=== PATIENT | male | born 1940 | race Caucasian/White ===

== ENCOUNTER 2017-11-30 09:24 | Emergency (ER) | payer OTHER ==
[~2017-11-30] VITALS: Ht 177.8 cm; Wt 105.2 kg
[~2017-11-30 09:24] MED LIST: ALLO100T PO; ASPI325T4 PO; ATOR20TA50 PO; CHOL100039 PO; COLCPOW2 PO; GABA100C9 PO; GEMF600T7 PO; GLIP-116 PO; LISI-275 PO; METF-929 PO; METO25TA5 PO
[2017-11-30] MEDS ORDERED: ONDANSETRON HCL 4 MG/2 ML VIAL ONE (09:54)
[2017-11-30 09:57] LABS: Basophils # (auto) 0.1 uL; Basophils % (auto) 0.8 % (0.0-2.0); Eosinophils # (auto) 0.2 uL; Eosinophils % (auto) 1.7 % (0.0-7.0); Hematocrit 39.2 % (41.0-53.0); Hemoglobin 12.9 g/dL (13.5-17.5); Lymphocytes # (auto) 2.8 uL; Mean Corpuscular Hemoglobin 30.4 pg (28.0-32.0); Mean Corpuscular Hgb Conc. 32.9 g/dL (32.0-36.0); Mean Corpuscular Volume 92.6 fL (80.0-100.0); Monocytes # (auto) 0.8 uL; Monocytes % (auto) 7.4 % (0.0-12.0); Neutrophils % (auto) 64.1 % (37.0-80.0); Nucleated Red Blood Cells % 0.1 %; Platelet Count (auto) 200 10^3/uL (140-450); Red Blood Cells 4.23 10^6/uL (4.5-5.90); Red Cell Distribution Width 14.5 % (11.8-14.3); White Blood Cell 10.9 10^3/uL (4.4-10.8)
[2017-11-30] MEDS ORDERED: MORPHINE SULFATE 4 MG/ML SYR/VIAL IV ONE (10:00)
[2017-11-30] MEDS ORDERED: PROMETHAZINE HCL 25 MG/ML 1ML IV ONE (10:00)
[2017-11-30 10:15] LABS: Albumin 2.8 g/dL (3.4-5.0); BUN/Creatinine Ratio 28.3; Calcium 8.2 mg/dL (8.5-10.1); Potassium 4.5 mmol/L (3.5-5.1)
[2017-11-30 10:20] LABS: Bilirubin, Total 0.3 mg/dL (0.2-1.0); Total Protein 6.5 g/dL (6.4-8.2)
[2017-11-30] MEDS ORDERED: LABETALOL HCL 5 MG/ML ML 20ML VIAL IV ONE (11:00)
[2017-11-30] MEDS ORDERED: ASPirin 81 mg TAB PO ONE (13:00)
[2017-11-30] MEDS ORDERED: IBUPROFEN 600 MG TAB PO ONE (14:15)
[2017-11-30] MEDS ORDERED: HEPARIN SODIUM (PORCINE) 5000 UNITS/ML 1ML VIAL IV ONE (16:00)
[2017-11-30 19:40] VITALS: BP 91/45
== END 2017-11-30 11:48 | disposition short-term general hospital (02) ==
LOC: EDBD → ER 09:24 → EDBD 09:24 → EDUNIT# 09:24 → ER 11:48
DX: I24.9 Acute ischemic heart disease, unspecified (principal); I21.4 Non-ST elevation (NSTEMI) myocardial infarction; E11.9 Type 2 diabetes mellitus without complications; I10 Essential (primary) hypertension; J44.9 Chronic obstructive pulmonary disease, unspecified; Z98.61 Coronary angioplasty status; Z79.82 Long term (current) use of aspirin; Z79.84 Long term (current) use of oral hypoglycemic drugs
CPT/HCPCS: 36415; 71045; 80053; 84484; 85025; 93005; 96374; 96375; 99285; J1644; J2270; J2405

== ENCOUNTER 2018-02-09 20:55 | Emergency (ER) | payer OTHER ==
[2018-02-09] MEDS ORDERED: EPINEPHrine HCL 1 MG/10 ML SYRG IV ONE (20:58)
[2018-02-09] MEDS ORDERED: CALCIUM CHLOR(10%) 100MG/ML 10ML SYRINGE IV ONE (20:58)
[2018-02-09] MEDS ORDERED: SODIUM BICARBONATE 8.4% INJ 50ML SYRINGE IV ONE (20:58)
== END 2018-02-09 21:08 | disposition expired ==
LOC: EDBD 20:55 → ER 20:57
DX: I46.9 Cardiac arrest, cause unspecified (principal); J44.9 Chronic obstructive pulmonary disease, unspecified; E11.9 Type 2 diabetes mellitus without complications; I10 Essential (primary) hypertension; Z98.61 Coronary angioplasty status; Z79.899 Other long term (current) drug therapy
CPT/HCPCS: 92950; 99285; J0171